=== PATIENT | female | born 1960 | race Caucasian/White ===

== ENCOUNTER 2020-07-30 14:41 | Emergency (ER) | payer OTHER, SELFPAY ==
[2020-07-30 14:48] VITALS: BP 130/72; PULSE 68; RESP 16; TEMP 36.8; O2SAT 97; BMI 28.6
--- NOTE | 2020-07-30 14:50 | DI.RAD.S_ITS ---
PROCEDURE: XR WRIST LT MIN 3V INDICATIONS: fall TECHNIQUE: 4 views of the wrist were acquired. COMPARISON: None. FINDINGS: Bones: Subtle irregularity involving lateral cortex of distal radius consistent with acute nondisplaced fracture. No other fracture or dislocation. No suspicious bony lesions. Scaphoid view: Scaphoid is intact. Soft tissues: No suspicious soft tissue calcifications. IMPRESSION: Subtle nondisplaced/incomplete fracture involving lateral portion of distal radius. Dictated by: Robert Curry M.D. on 07/30/2020 at 15:21 Approved by: Robert Curry M.D. on 07/30/2020 at 15:21
--- NOTE | 2020-07-30 15:24 | ED_ITS ---
HPI - Extremity Injury (Upper) General Chief Complaint: Extremity Injury, Upper Stated Complaint: LEFT WRIST INJURY Time Seen by Provider: 07/30/20 14:58 Source: patient Mode of arrival: Ambulatory Limitations: no limitations History of Present Illness HPI narrative: 60-year-old female nonsmoker presents with a chief complaint of left wrist injury after a work related fall just prior to arrival. She works as a gear machine operator general locally and a stack of wood was unsteady and knocked her over. As a consequence, she fell back on an outstretched left wrist and now has pain with range of motion in her left wrist. She denies any head neck or back pain. She denies any shoulder or elbow pain. Her pain is worse when she moves and improves with rest. She denies any numbness, tingling or weakness MD complaint: injury to: left Onset (ago): hour(s) Other Extremity Injury: Left: wrist Other injuries: none Handedness: right Place: work Severity: moderate Relieving factors: cold therapy Exacerbating factors: movement of extremity Context: fall and direct blow Associated symptoms: denies other symptoms Treatments prior to arrival: cold therapy Related Data Home Medications Medication Instructions Recorded Confirmed thyroid (pork) 65 mg tablet 65 mg PO DAILY 08/23/19 08/23/19 Previous Rx's Medication Instructions Recorded triamcinolone acetonide 0.1 % 1 applictn TOP BID #30 gram 08/23/19 topical cream Allergies Allergy/AdvReac Type Severity Reaction Status Date / Time No Known Drug Allergies Allergy Verified 08/23/19 15:00 Review of Systems Constitutional Constitutional: Denies chills, Denies fatigue, Denies fever(s), Denies frequent falls, Denies lethargy and Denies weakness Eyes Eyes: Denies change in vision, Denies eye discharge, Denies irritation and Denies loss of vision ENT Ears, Nose, Mouth, and Throat: Denies change in voice, Denies dizziness, Denies neck pain, Denies sore throat and Denies throat swelling Cardiovascular Cardiovascular: Denies chest pain, Denies irregular heart rhythm, Denies lightheadedness, Denies palpitations, Denies dyspnea, Denies dyspnea on exertion and Denies orthopnea Respiratory Respiratory: Denies cough, Denies dyspnea, Denies dyspnea on exertion and Denies wheezing Gastrointestinal Gastrointestinal: Denies abdominal pain, Denies change in bowel habits, Denies diarrhea, Denies nausea and Denies vomiting Musculoskeletal Musculoskeletal: Reports arthralgias, Denies neck pain and Denies numbness Integumentary/Breasts Skin/Breast: Denies pruritus, Denies erythema, Denies rash and Denies wounds Neurologic Neurologic: Denies behavioral changes, Denies confusion, Denies dizziness, Denies frequent falls, Denies loss of vision, Denies numbness and Denies weakness Psychiatric Psychiatric: Denies anxiety, Denies behavioral changes, Denies confusion, Denies depression, Denies homicidal ideation and Denies suicidal ideation Endocrine Endocrine: Denies fatigue, Denies flushing and Denies palpitations Hematologic/Lymphatic Hematologic/Lymphatic: Denies easy bruising Allergic/Immunologic Allergic/Immunologic: Denies urticaria, Denies throat swelling and Denies wheezing Patient History Social History Smoking Status: Never smoker Smoking Status: Never smoker alcohol intake frequency: 0-2 drinks per day Substance Use Type: does not use Exam Narrative Exam Narrative: GEN: AOx3 and in mild distress EYES: Pupils are equal, round, and reactive to light and accommodation. Extraoccular muscles are intact bilaterally. There is no subconjunctival hemorrhage or exudate. CHEST: Lungs are clear to auscultation bilaterally and free of wheezes, rales, or rhonchi. Heart rate is regular rhythm, there are no murmurs, clicks, rubs, or gallops. There is no chest wall tenderness. ABD: Abdomen is soft and nontender. There is no guarding or rebound. Bowel sounds are normal in all 4 quadrants. There is no mass or organomegaly. EXT: Full but painful range of motion of the left wrist, closed isolated and neurovascularly intact SKIN: Warm, pink, and dry. No erythema or rash Initial Vital Signs Initial Vital Signs: Vital Signs Temperature 98.2 F 07/30/20 14:48 Pulse Rate 68 07/30/20 14:48 Respiratory Rate 16 07/30/20 14:48 Blood Pressure 130/72 07/30/20 14:48 Pulse Oximetry 97 07/30/20 14:48 Procedures Orthopedic Splinting/Casting Injury #1: Side: left Upper Extremity Injury Location: wrist Upper Extremity Immobilizer: sling/shoulder immobilizer Post splinting neuro exam: intact Post splinting vascular exam: intact Placed by: Nursing Course Orders Ordered: ED Orders 07/30/20 14:50 XR wrist LT min 3V Stat Vital Signs Vital signs: Vital Signs - 8 hr 07/30/20 14:48 Temperature 98.2 F Pulse Rate 68 Respiratory Rate 16 Blood Pressure 130/72 Pulse Oximetry 97 Discharge Plan Departure Patient Disposition: Home Clinical Impression: Distal radius fracture, left Qualifiers: Encounter type: initial encounter Fracture type: closed Fracture morphology: other fracture Qualified Code(s): S52.592A - Other fractures of lower end of left radius, initial encounter for closed fracture Instructions: DI for Distal Radius Fracture Activity Restrictions/Additional Instructions: *You have been diagnosed with [minimally displaced left distal radius fracture] *What to do: *Please continue to take your regular medications as directed. [ ] New medication prescriptions sent to your pharmacy: [ ] [ ] New medication written as a paper prescription [ x] No new medications given *Please follow up with your primary care provider in 2-3 days, call for an appointment. Let them know you were seen in the Emergency Department and that we ask that you be seen in follow up. We will electronically transmit a record of today's note if your PCP is in our system *If you do not have a primary care provider please contact the [facility] Resource line at [phone]. They will ask some questions about your medical history and help get you set up with a doctor in the community. *Return to Emergency Department if you should have any new, worsening or concerning symptoms, such as [fever greater than 101 F, shaking chills, worsening pain, persistent vomiting or other bothersome symptoms] Prescriptions: No Action Nature-Throid 65 mg tablet 65 mg PO DAILY RF: 0 triamcinolone acetonide 0.1 % cream 1 applictn TOP BID Qty: 30 RF: 0 Referrals: Genaro Armando MD [Physician] -
[2020-07-30 16:17] VITALS: BP 140/75; PULSE 55; RESP 20; O2SAT 99
== END 2020-07-30 16:26 | disposition home or self-care (01) ==
PROVIDERS: Emergency Provider Emergency Medicine
DX: S52.592A Other fractures of lower end of left radius, initial encounter for closed fracture (principal); W19.XXXA Unspecified fall, initial encounter
CPT/HCPCS: 29125; 73110; 99283

== ENCOUNTER → 2022-04-15 14:35 | Outpatient (CLI) | payer OTHER, SELFPAY ==
--- NOTE | 2022-04-15 | DI.RAD.S_ITS ---
PROCEDURE: XR SHOULDER LT MIN 2V INDICATIONS: Pain in left shoulder TECHNIQUE: 3 views of the shoulder were acquired. COMPARISON: None. FINDINGS: Bones: No fractures or dislocations. No suspicious bony lesions. There is a large osteophyte at the inferior aspect of the left femoral head. Visualized ribs appear intact. Soft tissues: No suspicious soft tissue calcifications. IMPRESSION: Moderate to severe left glenohumeral joint degenerative change. Dictated by: Tova Polo M.D. on 04/15/2022 at 16:11 Approved by: Tova Polo M.D. on 04/15/2022 at 16:11
== END ==
PROVIDERS: PCP Family Medicine; Referring Provider Family Medicine; Visit Provider Family Medicine
DX: M25.512 Pain in left shoulder (principal)
CPT/HCPCS: 73030

== ENCOUNTER → 2022-10-13 17:01 | Outpatient (CLI) | payer OTHER, SELFPAY ==
--- NOTE | 2022-10-13 | DI.MRI.S_ITS ---
PROCEDURE: MR SHOULDER LT WO CON INDICATIONS: Pain in left shoulder TECHNIQUE: Noncontrast oblique coronal T2 fast spin echo with fat saturation, oblique sagittal T1 spin echo and T2 fast spin echo with fat saturation, axial T1 spin echo and T2 fast spin echo with fat saturation through the shoulder. COMPARISON: Shoulder radiograph dated 04/15/2022. FINDINGS: Image quality: Excellent. Rotator cuff: Low to moderate grade articular and bursal surface partial thickness tear involving distal supraspinatus at its insertion on humeral head is seen extending to musculotendinous junction. Distal infraspinatus tendinosis is seen . Low-grade intrasubstance partial-thickness tear is seen in distal subscapularis. No full-thickness rotator cuff tendon rupture. Sagittal images demonstrate very mild supraspinatus muscle atrophy. Bones and bursae: No bone marrow contusions or fractures. Mild to moderate acromioclavicular joint and glenohumeral joint osteoarthritic changes are seen with joint space narrowing, subchondral sclerosis and downward osteophyte formation. There is small amount of joint effusion and subacromial subdeltoid bursal fluid. No gross loose bodies. Capsule and soft tissues: Subtle fraying and signal abnormality within superior anterior labrum at 12 to 1 o'clock position is seen suggestive of subtle superior anterior labral tear. There is also suggestion of posterior inferior labral tear at 6 to 8 o'clock position. The long head of the biceps tendon appears thickened. The rotator interval appears normal, without fibrosis. The coracohumeral ligament is normal in thickness. IMPRESSION: 1. Low to moderate grade articular and bursal surface partial thickness tear involving distal supraspinatus extending to musculotendinous junction. Distal infraspinatus tendinosis. Low-grade intrasubstance partial-thickness tear involving distal subscapularis. No full-thickness rotator cuff tendon rupture. Very mild supraspinatus muscle atrophy. 2. [id number] acromioclavicular joint and glenohumeral joint osteoarthritis. No fracture or dislocation. Small joint effusion and subacromial subdeltoid bursal fluid. 3. Suggestion of subtle superior anterior labral tear at 12 to 1 o'clock position and posterior inferior labral tear at 6 to 8 o'clock position. 4. Proximal intra-articular portion of long head of biceps tendinosis. Dictated by: Robert Curry M.D. on 10/14/2022 at 11:02 Approved by: Robert Curry M.D. on 10/14/2022 at 11:05
== END ==
PROVIDERS: PCP Family Medicine; Referring Provider Orthopaedic Surgery; Visit Provider Orthopaedic Surgery
DX: M75.112 Incomplete rotator cuff tear or rupture of left shoulder, not specified as traumatic (principal); M19.012 Primary osteoarthritis, left shoulder; M25.412 Effusion, left shoulder; M25.512 Pain in left shoulder
CPT/HCPCS: 73221

== ENCOUNTER → 2022-10-28 11:43 | Outpatient (CLI) | payer OTHER, SELFPAY ==
[2022-10-28 12:47] LABS: Appearance Urine UA CLEAR; Bilirubin Urine UA NEGATIVE (NEGATIVE); Color Urine UA YELLOW; Glucose Urine UA NEGATIVE (Negative); Ketones Urine UA NEGATIVE (NEGATIVE); Leukocyte Esterase Urine UA NEGATIVE (NEGATIVE); Nitrite Urine UA NEGATIVE (Negative); Occult Blood Urine UA NEGATIVE (Negative); Protein Urine UA NEGATIVE (Negative); Urobilinogen Urine UA 0.2 E.U./dL (0.2)
[2022-10-28 13:18] LABS: Bacteria Urine None Seen; Culture Indicated Urine Cult Not Indicated; RBC Urine None Seen (0-5/HPF); Squamous Epithelial Cell Urine 0-1 /HPF (0-5/HPF); WBC Urine None Seen (0-5/HPF)
[2022-10-28 14:18] LABS: Add Manual Diff / Slide Review NO; Basophils Absolute Auto 0 /uL (0-100); Basophils Percent Auto 0.6 % (0-2); Eosinophils Absolute Auto 100 /uL (0-450); Eosinophils Percent Auto 1.8 % (2-4); Hematocrit 39.6 % (36-46); Hemoglobin 12.9 g/dL (12.0-16.0); Lymphocytes Absolute Auto 2600 /uL (1100-4500); Lymphocytes Percent Auto 43.2 % (25-40); Mean Corpuscular HGB Conc 32.6 % (30-36); Mean Corpuscular Hemoglobin 28.2 PG (26-34); Mean Corpuscular Volume 86.6 fL (80-100); Monocytes Absolute Auto 400 /uL (0-900); Monocytes Percent Auto 6.9 % (3-14); Neutrophils Absolute Auto 2900 /uL (1500-7000); Neutrophils Percent Auto 47.5 % (50-75); Platelet Count 222 X10^3/uL (150-400); Red Blood Cell Count 4.57 X10^6/uL (4.0-5.2); Red Cell Distribution Width 14.6 % (11.6-14.8)
[2022-10-28 14:41] LABS: BUN Creatinine Ratio 24.3 (6-22); Blood Urea Nitrogen 17 mg/dL (7-17); Calcium 10.3 mg/dL (8.4-10.2); Carbon Dioxide 26 mmol/L (22-32); Chloride 104 mmol/L (98-107); Estimated Glomerular Filt Rate > 60 mL/min (>60); Glucose 92 mg/dL (80-110); HEMOLYSIS < 15 (0-50); Potassium 4.9 mmol/L (3.4-5.1); Sodium 137 mmol/L (137-145)
== END ==
PROVIDERS: PCP Family Medicine; Referring Provider Orthopaedic Surgery; Visit Provider Orthopaedic Surgery
DX: Z01.818 Encounter for other preprocedural examination (principal); Z01.812 Encounter for preprocedural laboratory examination; N39.0 Urinary tract infection, site not specified
CPT/HCPCS: 36415; 80048; 81001; 85025; 93005; 93010

== ENCOUNTER → 2022-11-13 13:47 | Outpatient (CLI) | payer OTHER, SELFPAY ==
--- NOTE | 2022-11-13 | DI.CT.S_ITS ---
PROCEDURE: CT UE LT WO CON INDICATIONS: Primary osteoarthritis, left shoulder TECHNIQUE: Noncontrast 1-1.5 mm thick sections acquired from the acromioclavicular joint to the inferior scapula, with coronal and sagittal reformatting. COMPARISON: None. FINDINGS: Image quality: Excellent. Bones: Glenohumeral joint space narrowing. Osteophytic lipping of the glenoid, with bulky osteophytosis about the humerus. Mild osteophytic lipping about the acromioclavicular joint, with a prominent capsule. No displaced fracture. Subacromial interval is within normal limits. No evidence of AC joint separation. Soft tissues: Muscle bulk is within normal limits. No significant effusion. Visualized along and mediastinum are unremarkable. IMPRESSION: Moderate glenohumeral osteoarthritis. Kellgren-Jori Grade 2. Mild acromioclavicular osteoarthritis. Dictated by: Johnny Blanco M.D. on 11/14/2022 at 7:34 Approved by: Johnny Blanco M.D. on 11/14/2022 at 7:36
== END ==
PROVIDERS: PCP Family Medicine; Referring Provider Orthopaedic Surgery; Visit Provider Orthopaedic Surgery
DX: M19.012 Primary osteoarthritis, left shoulder (principal)
CPT/HCPCS: 73200

== ENCOUNTER 2022-12-01 09:02 | Day surgery (SDC) | payer OTHER, SELFPAY ==
[2022-11-26 08:56] VITALS: BMI 28.3
--- NOTE | 2022-12-01 06:00 | DI.RAD.S_ITS ---
PROCEDURE: XR SHOULDER LT 1V INDICATIONS: TSA TECHNIQUE: 1 views of the shoulder were acquired. COMPARISON: [facility], CR, XR SHOULDER LT MIN 2V, 04/15/2022, 14:37. FINDINGS: Postsurgical left arthroplasty changes. There is good anatomic alignment and hardware is intact. Post surgical soft tissue changes are present.. IMPRESSION: Left arthroplasty postsurgical change. Dictated by: Ludy Hernandez M.D. on 12/01/2022 at 14:03 Approved by: Ludy Hernandez M.D. on 12/01/2022 at 14:03
[2022-12-01 09:23] VITALS: BP 109/75; PULSE 73; RESP 17; TEMP 36.8; O2SAT 98; BMI 28.3
[2022-12-01] MEDS: ACETAMINOPHEN 325 MG TABLET 975 MG PO (10:07)
[2022-12-01] MEDS: SCOPOLAMINE 1 PATCH TOP (10:09)
[2022-12-01] MEDS: LACTATED RINGERS 1,000 ML 42 ML IV ×2 (10:12→12:37)
--- NOTE | 2022-12-01 10:39 | PM.PREOP ---
Pre-operative Note Interval Note History & Physical reviewed/Exam performed by Physician: Yes Changes to H&P: No
[2022-12-01] MEDS: TRANEXAMIC ACID 1,000 MG VIAL 1000 MG INJ ×2 (11:26→12:23)
[2022-12-01] MEDS: CEFAZOLIN 2 GM/100 ML PREMIX 100 ML IV (11:26)
--- NOTE | 2022-12-01 11:53 | SUR.OPER ---
Beach chair with Skytron shoulder positioner. Lower body on padded OR bed. Head in foam padded head cradle, secured with straps. Non-operative arm padded with gel pad and secured <90 degrees abduction at patients side. 2X Pillows under knees. Gel pad under bilateral heels and heels floated. Safety belt at thigh. Cloth tape over blanket over lower legs.
[2022-12-01] MEDS: BUPIVACAINE 0.25% (PF) 30 ML, EPINEPHrine 0.15 MG INJ (12:20)
--- NOTE | 2022-12-01 13:11 | P.OP_ITS ---
Operative Date/Time/Diagnoses Date of procedure: 12/01/22 Time of procedure: 13:11 Pre-op diagnosis: left shoulder glenohumeral arthritis Post-op diagnosis: same Procedure & Clinicians Procedure: Left anatomic total shoulder arthroplasty Same procedure as scheduled: Yes Indications: Indications: This is a 62-year-old female who has primary osteoarthritis of the left glenohumeral joint. Symptoms have been present for years, insidious onset. Patient has failed conservative therapy including injections, physical therapy, anti-inflammatories and activity modification. After extensive discussion in clinic, they wished to go forward with surgery. Risks and benefits were described including the risk of infection, bleeding, damage to internal structures including nerves. We also discussed the risk of failure of surgery and the need for revision surgery as well as the risk of anesthesia. The patient expressed understanding with these risks and wished to go forward with surgery. Surgeon: Marky Jim Sleeping Car Conductor: Ramsey Garcia Anesthesia Type: General Operative Notes Findings: Findings: Osteoarthritis of the glenoid and humeral head as noted on preoperative imaging and under direct visualization Closure Type: primary Specimen(s): none sent Prosthetic devices, grafts, tissues, transplants, or devices: [employer]plants CortiLoc Pegged Glenoid UHMWPE S30 Simpliciti Nucleus Size 2 Simpliciti CoCr head size 46 x 17 Estimated Blood Loss (mL): 50 Blood products transfused: none Procedure in detail: Operative note: Patient was seen in the preoperative holding unit. The correct left shoulder was identified and marked with my initials. Again we discussed the risks and benefits of surgery and they wished to go forward with surgery. The patient was brought back to the operating room and placed supine on the operating table. She underwent smooth endotracheal intubation. All prominences were padded and they were placed into the beach chair position. Intravenous antibiotics were given. The left shoulder was then prepped with the standard sterile preparation and draping. A time-out was then performed in my initials were again identified on the correct shoulder. 1 g of IV tranexamic acid was given. A standard deltopectoral incision was made. Skin flaps were made. The cephalic vein was identified and retracted laterally. This was protected throughout the remainder of the case. Sharp dissection was made along the deltoid, subacromial and subcoracoid space to release adhesions. The conjoined tendon was identified and the axillary nerve was palpated and continuous using the tug test. It was protected throughout the remainder of the case. A brown retractor was placed underneath the deltoid muscle and a darach retractor underneath the conjoint tendon. The anterior circumflex artery and associated veins on the lower border of the subscapularis were identified and tied off using 0-Vicryl. The biceps tendon was identified in the bicipital groove. This was released from its sheath, and taken from its origin on the glenoid and tied into the pectoralis tendon for a solid tenodesis. We then began a subscapularis peel. The subscapularis was tagged with an Ethibond suture. A 360 degree circumferential release of the subscapularis was performed with protection of the axillary nerve. The coracohumeral ligament was released at the base of the coracoid. The coracoacromial ligament was left intact. The shoulder was then dislocated. Osteophytes were removed using combination of rongeur and osteotome. The rotator cuff was noted to be intact. Using an oscillating saw a conservative humeral head cut was made using the patient's [place] version. The head was measured and a guide for size 2 simpliciti humeral head was used to drill a central hole followed by impaction. Attention was then turned to the glenoid. After retracting the humeral head posteriorly, release of the capsule and labrum was performed. Central guidewire was placed. The glenoid was then reamed followed by a central drill over the guidewire. Guidewire was removed and using a guide, peripheral holes were drilled. At this point dilute Betadine wash was performed for 2 minutes. Medium viscosity cement was mixed and the drill holes were completely dried. An all polyethylene pegged glenoid was then selected, and cemented into the glenoid. Turning back to the humerus, the humeral head was delivered and 3 seperate [place] were passed through drill holes through the lesser tuberosity into the bicipital groove. The nucleus was then impacted into the humerus and a size 46 stemless humeral head was placed. The shoulder was then reduced and again brought through range of motion and was felt to be stable. The interval was then closed using #2 ethibond. The subscapularis was then repaired using a modified racking hitch with niece loupes. The deltopectoral interval was then closed with #2 Ethibond. The skin was closed with 2-0 PDS and Monocryl followed by Aquacel dressing. Patient was awoken from anesthesia and brought back to the postoperative recovery unit without issue. They were placed into a sling. Assisting participation: This operation could not have been safely performed (without compromising the technical results or length of the procedure) without the assistance of a skilled surgical asst. The surgical asst was med ically necessary for proper positioning, retraction and manipulation of instruments, proper exposure, graft prep, and manipulation of tissue. Complications: none Post-operative Condition: stable Disposition: PACU Plan for aftercare: Postoperative instructions: Sling to remain on for 6 weeks. No external rotation past neutral for 6 weeks. Okay for sling to come off for shower and gentle pendulum exercises. Okay to shower over the Aquacel dressing. If any water gets underneath the dressing, remove the dressing. First postoperative visit in 2 weeks.
[2022-12-01 13:26] VITALS: BP 109/56; PULSE 89; RESP 12; TEMP 36.2; O2SAT 95
[2022-12-01 13:31] VITALS: BP 102/64; PULSE 92; RESP 11; TEMP 36.3; O2SAT 94
[2022-12-01 13:38] VITALS: BP 105/62; PULSE 80; RESP 14; TEMP 36.2; O2SAT 95
[2022-12-01] MEDS: METOCLOPRAMIDE 10 MG/2 ML INJ IV (13:47)
[2022-12-01] MEDS: hydrOXYzine 50 MG/ML INJ 25 MG IM (13:50)
[2022-12-01 13:54] VITALS: BP 98/52; PULSE 79; RESP 12; TEMP 36.2; O2SAT 95
[2022-12-01] MEDS: ONDANSETRON 4 MG/2 ML INJ IV (14:04)
[2022-12-01] MEDS: OXYCODONE IR 5 MG TABLET PO (14:28)
[2022-12-01 14:55] VITALS: BP 100/64; PULSE 69; RESP 16; O2SAT 94
== END 2022-12-01 15:03 | disposition home or self-care (01) ==
PROVIDERS: PCP Family Medicine; Referring Provider Physician Assistant; Visit Provider Orthopaedic Surgery
PROC: (CPT 23472; principal; 2022-12-01 10:45)
DX: M19.012 Primary osteoarthritis, left shoulder (principal); M25.712 Osteophyte, left shoulder; G89.18 Other acute postprocedural pain
CPT/HCPCS: 23472; 36415; 64450; 73020; C1776; J0171; J0330; J0690; J1100; J2405; J2704; J2765; J3010; J3410

== ENCOUNTER → 2023-01-19 13:41 | Outpatient (CLI) | payer OTHER, SELFPAY ==
--- NOTE | 2023-01-19 | DI.MRI.S_ITS ---
PROCEDURE: MR ORBITS FACE NECK WO/W CON INDICATIONS: Nontoxic multinodular goiter TECHNIQUE: Sagittal/axial/coronal T1 spin echo and STIR. After the administration of contrast, axial/coronal/sagittal T1 fast spin echo with fat saturation through the neck. COMPARISON: None. FINDINGS: Image quality: Excellent. Lymph nodes: No enlarged nodes are seen throughout the neck. Vessels: Visualized vasculature appears normal, with normal flow voids and enhancement. Neck spaces: The oropharynx, nasopharynx and pharynx are unremarkable, without mucosal lesions seen. Vocal cords, false vocal cords, pyriform sinuses, epiglottis, vallecula, and tongue base all appear normal. Extramucosal spaces of the neck also appear unremarkable. Glands: The parotid and submandibular glands appear normal. Left superior thyroid nodule is present, better evaluated on prior ultrasound. No evidence of parathyroid lesions.. Miscellaneous: Visualized brain and orbits appear normal. Lung apices appear clear. Superficial soft tissues appear normal. Visualized sinuses and mastoids appear clear. Bones: Marrow has normal overall signal. Degenerative changes of the cervical spine. IMPRESSION: Left superior thyroid nodules better evaluated on prior ultrasound. No parathyroid lesions are identified. No lymphadenopathy. Dictated by: Leroy Palma M.D. on 01/28/2023 at 15:36 Approved by: Leroy Palma M.D. on 01/28/2023 at 15:45
== END ==
PROVIDERS: PCP Family Medicine; Referring Provider Family Medicine; Visit Provider Family Medicine
DX: E04.2 Nontoxic multinodular goiter (principal); E21.5 Disorder of parathyroid gland, unspecified
CPT/HCPCS: 70540; 70543; A9579

== ENCOUNTER → 2023-03-31 16:14 | Outpatient (CLI) | payer MEDICARE, SELFPAY ==
--- NOTE | 2023-03-31 16:17 | DI.MG.S_ITS ---
BILATERAL DIGITAL SCREENING MAMMOGRAM 3D/2D WITH CAD: 03/31/2023 CLINICAL: Routine screening. Family history of breast cancer. Comparison is made to exams dated: 07/16/2021 mammogram, 06/16/2020 mammogram - [facility], and 05/03/2018 mammogram - [facility]. Both breasts are heterogeneously dense, which may obscure small masses (category c / 51-75% glandular tissue). Current study was also evaluated with a Computer Aided Detection (CAD) system. No significant masses, calcifications, or other findings are seen in either breast. There has been no significant interval change. IMPRESSION: NEGATIVE There is no mammographic evidence of malignancy. A 1 year screening mammogram is recommended. Based on the Tyrer Cuzick model (a risk assessment model) the patient's lifetime risk is 19.9% and her 10 year risk is 9.6%. According to the ACR, ACS, and NCCN guidelines, an annual breast MRI exam along with mammogram is recommended if the patient's lifetime risk is 20% or greater. This exam was interpreted at Station ID: [id number]. NOTE: For mammograms, a report in lay terms will be sent to the patient. Approximately 15% of breast malignancies will not be visualized mammographically. In the management of a palpable breast mass, a negative mammogram must not discourage biopsy of a clinically suspicious lesion. Electronically Signed By: Lamonte augustin/claudia:04/01/2023 14:55:33 letter sent: Normal Exam ACR BI-RADS Category 1: Negative [id number]
== END ==
PROVIDERS: PCP Family Medicine; Referring Provider Family Medicine; Visit Provider Family Medicine
DX: Z12.31 Encounter for screening mammogram for malignant neoplasm of breast (principal); Z80.3 Family history of malignant neoplasm of breast; R92.333 Mammographic heterogeneous density, bilateral breasts
CPT/HCPCS: 77063; 77067

== ENCOUNTER → 2023-10-27 15:35 | Outpatient (CLI) | payer MEDICARE, SELFPAY ==
--- NOTE | 2023-10-27 15:45 | DI.CT.S_ITS ---
PROCEDURE: CT MASTOID TEMPORAL INDICATIONS: EUSTACHIA TUBE DYSFUNCTION COMPARISON: None. TECHNIQUE: Noncontrast 0.6 mm thick axial sections acquired through each temporal bone separately. Coronal images are reformatted. FINDINGS: Image quality: Excellent. RIGHT: External auditory canal: Canal has a normal appearance. Middle ear: The middle ear structures, including the ossicles and tympanic membrane, appear normal. No abnormal fluid or soft tissue density. Inner ear: Inner ear is normally formed and appears unremarkable. Facial nerve appears normal throughout is course. Mastoids: Mastoid air cells are clear. LEFT: External auditory canal: Canal has a normal appearance. Middle ear: The middle ear structures, including the ossicles and tympanic membrane, appear normal. No abnormal fluid or soft tissue density. Inner ear: Inner ear is normally formed and appears unremarkable. Facial nerve appears normal throughout its course. Mastoids: Mastoid air cells are clear. MISCELLANEOUS: Visualized surrounding bones appear unremarkable. Visualized intracranial structures, including the cerebellopontine angle cisterns, appear normal. IMPRESSION: Unremarkable exam. Dictated by: Ludy Hernandez M.D. on 10/28/2023 at 11:39 Approved by: Ludy Hernandez M.D. on 10/28/2023 at 11:40
== END ==
PROVIDERS: PCP Family Medicine; Referring Provider Otolaryngology; Visit Provider Otolaryngology
DX: H69.90 Unspecified Eustachian tube disorder, unspecified ear; H61 Other disorders of external ear
CPT/HCPCS: 70480

== ENCOUNTER → 2024-04-20 16:31 | Outpatient (CLI) | payer MEDICARE, SELFPAY ==
--- NOTE | 2024-04-20 17:10 | DI.MRI.S_ITS ---
PROCEDURE: MR KNEE RT WO CON INDICATIONS: KNEE INJURY RT TECHNIQUE: Noncontrast sagittal PD fast spin echo and T2 fast spin echo with fat saturation, sagittal 3-D FLASH with fat saturation; coronal T1 spin echo and PD fast spin echo with fat saturation, and axial PD fast spin echo with fat saturation through the knee. COMPARISON: None. FINDINGS: Image quality: Excellent. Bones: Mild subchondral cyst formation is present at the anterior-lateral femoral condyle (/13), median patellar facet (9/7), and lateral patellar facet (9/7). The bone marrow signal is otherwise normal. There is no acute fracture or dislocation. Joints: There is a trace knee joint effusion. There is mild-moderate knee osteoarthritis, most conspicuous in the lateral and patellofemoral compartments. There is a 1.5 cm intra-articular body in the posterior joint capsule that lies posterior-lateral to the posterior cruciate ligament (; 01/06). Finley's cyst: None. Menisci: The medial meniscus and its posterior root attachment are normal. There is a complex tear of the posterior horn and posterior root of the lateral meniscus with radial and horizontal components (11/07-; -). There is no significant meniscal body extrusion. Cruciate ligaments: The anterior cruciate ligament is normal. There is intermediate signal and partial tearing of the posterior cruciate ligament as it approaches the femoral insertion (-). Collateral ligaments: The medial collateral ligament complex is normal. The lateral collateral ligament complex is normal. Popliteus Muscle/Tendon: The popliteus muscle and tendon are normal. Small ganglion cysts are present along the popliteus myotendinous junction adjacent to the proximal tibiofibular joint (11/09-). Extensor mechanism: There is mild intermediate signal and thickening of the quadriceps tendon. The patellar tendon is normal. The medial and lateral patellar retinacular attachments are normal. Articular cartilage: Areas of partial thickness and near full-thickness cartilage loss present at the posterior weight-bearing and nonweightbearing lateral compartment (/12). Partial-thickness chondral loss is present throughout the patellofemoral compartment (/). Other: No other acute findings. IMPRESSION: 1. Complex tear of the lateral meniscus posterior horn and posterior root without full-thickness avulsion. 2. Partial-thickness tearing of the posterior cruciate ligament along its femoral insertion. 3. Mild quadriceps tendinosis. 4. Mild-moderate knee osteoarthritis with a 1.5 cm posterior joint capsule intra-articular body, and associated articular cartilage defects. Dictated by: Wesly Page M.D. on 04/23/2024 at 11:03 Approved by: Wesly Page M.D. on 04/23/2024 at 11:22
== END ==
PROVIDERS: PCP Family Medicine; Referring Provider Family Medicine; Visit Provider Family Medicine
DX: S83.231A Complex tear of medial meniscus, current injury, right knee, initial encounter (principal); S83.521A Sprain of posterior cruciate ligament of right knee, initial encounter; M17.11 Unilateral primary osteoarthritis, right knee
CPT/HCPCS: 73721

== ENCOUNTER → 2024-06-05 11:20 | Outpatient (CLI) | payer MEDICARE, SELFPAY ==
--- NOTE | 2024-06-05 11:22 | DI.RAD.S_ITS ---
PROCEDURE: XR DEXA AXIAL SKELETON INDICATIONS: Post menopause COMPARISON: None. FINDINGS: Lumbar Spine: Bone mineral density 1.037 g/cm2, T score 0.2. Left Femoral Neck: Bone mineral density 0.686 g/cm2, T score -1.5. Left Hip: Bone mineral density 0.807 g/cm2, T score -1.1. Fracture Risk Calculation (when applicable): 10-year fracture risk of a major osteoporotic fracture 8.8 percent and of a hip fracture 0.9 percent. (T score greater or equal to -1.0 to: NORMAL) (T score from -1.1 to -2.4: OSTEOPENIA) (T score less than or equal to -2.5: OSTEOPOROSIS) IMPRESSION: Low bone mineral density (osteopenia) by WHO classification. Follow-up guidelines as follows: Osteoporosis: Consider a repeat DEXA and Vertebral Fracture Assessment (VFA) exam in 2 years or sooner if medically necessary, to reassess this patient's status. Osteopenia: Consider a repeat DEXA in 2-3 years to reassess this patient's status, or if there is a new clinical indication. Normal: Consider a repeat DEXA in 5 years or sooner, or if there is a new clinical indication. All treatment decisions require clinical judgment and consideration of individual patient factors, including patient preferences, comorbidities, previous drug use, risk factors not captured in the FRAX model (e.g., frailty, falls, vitamin D deficiency, increased bone turnover, interval significant decline in bone density ) and possible under- or over-estimation of fracture risk by FRAX. In addition, the NOF Guide recommends that FDA-approved medical therapies be considered in postmenopausal women and men age >= 50 years with a: * Hip or vertebral (clinical or morphometric) fracture * T-score of <=-2.5 at the spine or hip * Ten-year fracture probability by FRAX of >= 3% for hip fracture or >=20% for major osteoporotic fracture. Dictated by: Leroy Palma M.D. on 06/05/2024 at 18:41 Approved by: Leroy Palma M.D. on 06/05/2024 at 18:42
--- NOTE | 2024-06-05 11:22 | DI.US.S_ITS ---
PROCEDURE: US THYROID INDICATIONS: Thyroid nodule TECHNIQUE: Real-time scanning was performed of the thyroid gland, with image documentation. COMPARISON: [facility], US, US THYROID, 12/22/2022, 15:54. FINDINGS: Thyroid: Right lobe measures 4.5 x 1.0 x 1.0 cm. Left lobe measures 4.4 x 1.2 x 1.1 cm. Isthmus is 0.3 cm thick. Echotexture is homogeneous. Nodule number: 1 Location: Left superior Size: 1.5 x 0.9 x 1.0 cm, previously 1.2 x 0.8 x 0.7 cm. Composition: Solid Echogenicity: Hypoechoic Shape: wider than tall. Margins: Vera Echogenic foci: None Total points: 4 ACR TI-RADS category: Moderately suspicious. Nodule adjacent to the right thyroid lobe measuring 6 x 5 x 4 mm. IMPRESSION: There has been increased size of a left thyroid lobe nodule versus development of a new nodule given differences in appearance. This nodule qualifies for fine-needle aspiration. Nodule adjacent to the right thyroid lobe measuring 6 mm, may represent a parathyroid adenoma. Recommend laboratory correlation. ACR TI-RADS definitions and recommendations: TI-RADS 1 (benign): 0 points. FNA not needed. TI-RADS 2 (not suspicious): 2 points. FNA not needed. TI-RADS 3: 3 points. * FNA if 2.5 cm or larger, follow up if 1.5 cm or larger (at 1, 3, and 5 years). TI-RADS 4: 4-6 points. * FNA if 1.5 cm or larger, follow up if 1 cm or larger (at 1, 2, 3, and 5 years). TI-RADS 5: 7 points or more. * FNA if 1 cm or larger, follow up if 0.5 cm or larger (every year for 5 years). Dictated by: Leroy Palma M.D. on 06/05/2024 at 15:37 Approved by: Leroy Palma M.D. on 06/05/2024 at 15:42
--- NOTE | 2024-06-05 11:22 | DI.MG.S_ITS ---
MM screening mammo BI: 06/05/2024. BI-RADS: 1 CLINICAL: 64-year old female for bilateral screening mammogram. Tyrer-Cuzick lifetime risk of 6.2%. PRIOR EXAMS 03/31/2023, 07/16/2021, 06/16/2020. MAMMOGRAPHY TECHNIQUE: 2D and 3D (tomosynthesis) digital mammographic views obtained, with additional images as needed for full coverage. Current study was also evaluated with a Computer Aided Detection (CAD) system. DENSITY C. The breasts are heterogeneously dense, which may obscure small masses. MAMMOGRAPHY FINDINGS Bilateral: No suspicious mass, asymmetry, microcalcification, or other abnormality seen. No significant change from comparison. IMPRESSION: * No evidence of malignancy. RECOMMENDATIONS Bilateral * Annual screening mammography. OVERALL ASSESSMENT CATEGORY BI-RADS-1: Negative. The [employer] recommends annual screening mammography beginning at age 40 for women with average risk of breast cancer. ELECTRONICALLY SIGNED: Char Flores M.D. on 06/05/2024 at 12:44:22 PM PT Interpreting Station ID: [id number]
== END ==
PROVIDERS: PCP Family Medicine; Referring Provider Family Medicine; Visit Provider Family Medicine
DX: E04.1 Nontoxic single thyroid nodule (principal); Z12.31 Encounter for screening mammogram for malignant neoplasm of breast; R92.333 Mammographic heterogeneous density, bilateral breasts; M85.852 Other specified disorders of bone density and structure, left thigh; Z78.0 Asymptomatic menopausal state
CPT/HCPCS: 76536; 77063; 77067; 77080

== ENCOUNTER → 2024-07-04 08:39 | Outpatient (CLI) | payer MEDICARE, SELFPAY ==
[2024-07-04 09:45] LABS: Add Manual Diff / Slide Review NO; Basophils Absolute Auto 0 /uL (0-100); Basophils Percent Auto 0.5 % (0-2); Eosinophils Absolute Auto 100 /uL (0-450); Eosinophils Percent Auto 1.8 % (2-4); Hematocrit 40.9 % (36-46); Hemoglobin 13.4 g/dL (12.0-16.0); Lymphocytes Absolute Auto 2000 /uL (1100-4500); Lymphocytes Percent Auto 36.2 % (25-40); Mean Corpuscular HGB Conc 32.7 % (30-36); Mean Corpuscular Hemoglobin 28.5 PG (26-34); Monocytes Absolute Auto 500 /uL (0-900); Monocytes Percent Auto 9.4 % (3-14); Neutrophils Absolute Auto 2900 /uL (1500-7000); Neutrophils Percent Auto 52.1 % (50-75); Platelet Count 287 X10^3/uL (150-400); Red Cell Distribution Width 14.1 % (11.6-14.8); White Blood Cell Count 5.6 X10^3/uL (4.5-11.0)
[2024-07-04 10:09] LABS: Alanine Aminotransferase 26 IU/L (<35); Albumin 4.8 g/dL (3.5-5.0); Albumin Globulin Ratio 2.2 (1.0-2.8); Alkaline Phosphatase 73 U/L (38-126); Aspartate Aminotransferase 31 IU/L (14-36); Bilirubin Total 0.8 mg/dL (0.2-1.3); Blood Urea Nitrogen 21 mg/dL (7-17); Calcium 10.6 mg/dL (8.4-10.2); Carbon Dioxide 25 mmol/L (22-32); Chloride 105 mmol/L (98-107); Cholesterol 248 mg/dL (140-199); Estimated Glomerular Filt Rate > 60 mL/min (>60); Globulin 2.2 g/dL (1.7-4.1); Glucose 101 mg/dL (70-99); HDL Cholesterol 68 mg/dL (40-60); HEMOLYSIS < 15 (0-50); LDL Cholesterol Calculated 161 mg/dL (<100); Potassium 5.2 mmol/L (3.4-5.1); Sodium 137 mmol/L (137-145); Triglycerides 95 mg/dL (35-150)
[2024-07-04 10:29] LABS: Vitamin D 25 Hydroxy (D3) 57.4 ng/mL (30.0-100.0)
[2024-07-04 10:31] LABS: T4 Total Thyroxine 8.29 ug/dL (5.5-11.0)
[2024-07-06 08:36] LABS: Calcium 10.3 mg/dL (8.7-10.3); Parathyroid Hormone, Intact 41 pg/mL (15-65)
== END ==
LOC: LAB 08:42
PROVIDERS: PCP Family Medicine; Referring Provider Family Medicine; Visit Provider Family Medicine
DX: E03.9 Hypothyroidism, unspecified (principal); E04.1 Nontoxic single thyroid nodule; E21.5 Disorder of parathyroid gland, unspecified; Z13.6 Encounter for screening for cardiovascular disorders
CPT/HCPCS: 36415; 80053; 80061; 82306; 82310; 83970; 84436; 84443; 84481; 85025

== ENCOUNTER → 2024-07-04 12:59 | Outpatient (CLI) | payer MEDICARE, SELFPAY ==
--- NOTE | 2024-07-04 13:01 | DI.US.S_ITS ---
PROCEDURE: US THYROID INDICATIONS: LEFT thyroid NODULE TECHNIQUE: Real-time scanning was performed of the thyroid gland, with image documentation. 3 images COMPARISON: [facility], US, US THYROID, 06/05/2024, 11:44. FINDINGS: Thyroid: Nodule number: 1 Location: Left thyroid lobe superiorly Size: 0.9 x 0.6 x 0.4 cm (previously measured approximately 1.5 x 1.0 x 0.9 cm). Initially the patient was scheduled for an ultrasound-guided fine-needle aspiration of the left thyroid lobe nodule. Prior to the procedure in discussion with the patient since the lesion was smaller than the prior exam and stable over the past several exams the patient decided to forego fine-needle aspiration at this time and to follow the lesion by ultrasound IMPRESSION: Left thyroid lobe nodule as discussed above. Follow-up ultrasound in 1 year. Dictated by: Peter Lopez M.D. on 07/04/2024 at 15:36 Approved by: Peter Lopez M.D. on 07/04/2024 at 15:40
== END ==
PROVIDERS: PCP Family Medicine; Referring Provider Family Medicine; Visit Provider Family Medicine
DX: E03.8 Other specified hypothyroidism (principal); E04.1 Nontoxic single thyroid nodule; E03.9 Hypothyroidism, unspecified; E21.5 Disorder of parathyroid gland, unspecified; Z13.6 Encounter for screening for cardiovascular disorders
CPT/HCPCS: 36415; 76536; 80053; 80061; 82306; 82310; 83970; 84436; 84443; 84481; 85025

== ENCOUNTER → 2024-07-27 09:01 | Outpatient (CLI) | payer MEDICARE, SELFPAY ==
--- NOTE | 2024-07-27 09:03 | DI.ECHO.S_ITS ---
[place] [facility]+ [facility] : : [address] : : [place] : : [id number] : : Phone: [phone] Echocardiogram Report + + :Name: ANDREINA POP Study Date: 07/27/2024 Height: 68 in : :[facility] ReadingLocation: Weight: 184 lb : : Gender: Female BSA: 2.0 m2 : :: 1960 Age: 64 yrs BP: 111/75 mmHg: :Reason For Study: PALPITATIONS : :Ordering Physician: NATHALIA, : :TUAN Rucker Performed By: John Beach : :Referring: TUAN SLOAN : + + Interpretation Summary The ejection fraction is estimated to be 60-65%. Grade I diastolic dysfunction. The right ventricle is normal in size and function. The right ventricular systolic pressure is estimated to be at least 24 mmHg based on an estimated right atrial pressure of 3 mm Hg. No significant valvular abnormalities. Procedure: A two-dimensional transthoracic echocardiogram with color flow and Doppler was performed. The study quality was technically good. There is no prior echocardiogram noted for this patient. The patient was in normal sinus rhythm during the exam. Left Ventricle: The left ventricle is normal in size. There is normal left ventricular wall thickness. There is no ventricular septal defect visualized. The ejection fraction is estimated to be 60-65%. There are no focal wall motion abnormalities. Grade I diastolic dysfunction. Right Ventricle: The right ventricle is normal in size and function. Atria: The left atrium is mildly dilated. Right atrial size is normal. There is no Doppler evidence for an interatrial shunt. Mitral Valve: The mitral valve leaflets appear normal. There is no evidence of stenosis, fluttering, or prolapse. There is trace mitral regurgitation. Aortic Valve: The aortic valve is trileaflet. The aortic valve is slightly calcified. The aortic valve opens well. There is no hemodynamically significant valvular aortic stenosis. No aortic regurgitation is present. Tricuspid Valve: The tricuspid valve leaflets are thin and pliable. There is mild tricuspid regurgitation. The right ventricular systolic pressure is estimated to be at least 24 mmHg based on an estimated right atrial pressure of 3 mm Hg. Pulmonic Valve: The pulmonic valve is not well seen, but is grossly normal. There is trace pulmonic regurgitation. Great Vessels: The aortic root is normal size. The dimensions of the ascending aorta are normal. The pulmonary artery is normal size. The IVC is of normal diameter and collapses greater than 50% with a sniff. This suggests a low right atrial pressure of 3 mm Hg. Pericardium/ Pleura There is no pericardial effusion. There is no pleural effusion. MMode/2D Measurements & Calculations LVIDd: 4.3 cm LVOT diam: 2.0 cm LVIDs: 2.7 cm Ao root diam: 3.1 cm FS: 37.3 % asc Aorta Diam: 2.9 cm EPSS: 0.70 cm IVSd: 0.84 cm LVPWd: 0.76 cm LV johnson. diameter/BSA (cm/m^2): 2.2 LV sys. diameter/BSA (cm/m^2): 1.4 LA A2 area: 19.6 cm2 RA long axis: 5.0 cm LA A4 area: 21.7 cm2 RA area: 14.0 cm2 LA length (vol): 4.9 cm RA vol: 33.2 ml LA vol: 73.0 ml RA : 16.8 ml/m2 LA vol index: 37.0 ml/m2 IVC diam: 1.1 cm RVD1 (basal): 3.6 cm RVD2 (mid): 3.1 cm TAPSE: 2.8 cm Doppler Measurements & Calculations Ao V2 max: 129.0 cm/sec LVOT Max Freddie: 100.3 cm/sec Ao V2 mean: 91.1 cm/sec LV V1 max P.0 mmHg Ao max P.7 mmHg LV V1 VTI: 21.7 cm Ao mean P.7 mmHg RICKY(I,D): 2.4 cm2 Ao V2 VTI: 28.4 cm RICKY(V,D): 2.4 cm2 sev ratio: 0.76 RICKY indexed to BSA (cm^2/m^2): 1.2 MV E max freddie: 66.4 cm/sec TR max freddie: 230.5 cm/sec MV A max freddie: 65.8 cm/sec TR max P.3 mmHg MV E/A: 1.0 PA V2 max: 87.6 cm/sec Med Peak E' Freddie: 5.7 cm/sec PA V2 mean: 67.1 cm/sec E/E' med: 11.6 PA mean P.9 mmHg Lat Peak E' Freddie: 5.9 cm/sec PA pr(Accel): 32.8 mmHg E/E' lat: 11.2 E/e' average: 11.4 MV dec time: 0.20 sec [facility] 68.2 ml Reading Physician:11:08 AM
== END ==
PROVIDERS: PCP Family Medicine; Referring Provider Family Medicine; Visit Provider Family Medicine
DX: I07.1 Rheumatic tricuspid insufficiency (principal); R00.2 Palpitations
CPT/HCPCS: 93306

== ENCOUNTER → 2024-08-22 09:24 | Outpatient (CLI) | payer MEDICARE, SELFPAY | LOC: CAR 09:25 | PROVIDERS: PCP Family Medicine; Referring Provider Family Medicine; Visit Provider Family Medicine | DX: R00.2 Palpitations (principal) | CPT/HCPCS: 93246 ==

== ENCOUNTER → 2024-10-31 09:28 | Outpatient (CLI) | payer MEDICARE, SELFPAY ==
[2024-10-31 11:26] LABS: Albumin 4.5 g/dL (3.5-5.0); Blood Urea Nitrogen 21 mg/dL (7-17); Calcium 10.6 mg/dL (8.4-10.2); Carbon Dioxide 23 mmol/L (22-32); Chloride 104 mmol/L (98-107); Estimated Glomerular Filt Rate > 60 mL/min (>60); Glucose 82 mg/dL (70-99); HEMOLYSIS < 15 (0-50); Potassium 4.7 mmol/L (3.4-5.1); Sodium 137 mmol/L (137-145)
[2024-10-31 12:00] LABS: Free T3, Triiodothyronine Free 5.04 pg/mL (2.77-5.27); Free T4, Direct Thyroxine 0.84 ng/dL (0.78-2.19)
[2024-10-31 12:14] LABS: Thyroid Stimulating Hormone 1.11 uIU/mL (0.47-4.68)
== END ==
PROVIDERS: PCP Family Medicine; Referring Provider Student in an Organized Health Care Education/Training Program; Visit Provider Student in an Organized Health Care Education/Training Program
DX: E03.9 Hypothyroidism, unspecified (principal)
CPT/HCPCS: 36415; 80048; 82040; 83970; 84439; 84443; 84481

== ENCOUNTER → 2024-11-01 16:17 | Outpatient (CLI) | payer MEDICARE, SELFPAY ==
--- NOTE | 2024-11-01 16:19 | DI.ECHO.S_ITS ---
[place] +---------+ [facility] : : [address] : : [place] : : [id number] : : Phone: [phone] Echocardiogram Report + + :Name: ANDREINA POP Study Date: 11/01/2024 Height: 67 in : :[facility] ReadingLocation: Weight: 179 lb : : Gender: Female BSA: 1.9 m2 : :: 1960 Age: 64 yrs BP: 113/75 mmHg: :Reason For Study: Palpitations : :Ordering Physician: ANITA, : :MILAGROS Performed By: Tulio Díaz : :Referring: MILAGROS HOWARD : + + Interpretation Summary The left ventricle is normal in size and wall thickness. Left ventricular systolic function is normal. The ejection fraction is estimated to be 60-65%. There has been no significant change in LV EF since the previous exam. The right ventricle is normal in size and function. There is mild mitral regurgitation. The IVC is of normal diameter and collapses greater than 50% with a sniff. This suggests a low right atrial pressure of 3 mm Hg. Procedure: A two-dimensional transthoracic echocardiogram with color flow and Doppler was performed. The study quality was technically adequate. Comparison is made with the echocardiogram of 07/27/2024. The heart rate ranged between 45-65 bpm during the study. The patient was in normal sinus rhythm during the exam. Left Ventricle: The left ventricle is normal in size and wall thickness. Left ventricular systolic function is normal. The ejection fraction is estimated to be 60-65%. There has been no significant change since the previous exam. There are no focal wall motion abnormalities. Grade I diastolic dysfunction with normal left atrial pressure. Right Ventricle: The right ventricle is normal in size and function. Atria: The left atrial size is normal. The left atrium has mildly decreased in size since the prior echo exam. Right atrial size is normal. There is no Doppler evidence for an interatrial shunt. The interatrial septum bows toward right atrium consistent with elevated left atrial pressure. Mitral Valve: The mitral valve leaflets appear to open well. There is no mitral valve stenosis. There is mild mitral regurgitation. Aortic Valve: The aortic valve is trileaflet. The aortic valve opens well. There is no aortic valve stenosis. There is trace aortic regurgitation. Tricuspid Valve: The tricuspid valve is normal. There is trace tricuspid regurgitation. Pulmonary artery pressures cannot be estimated because of the lack of a measurable TR jet velocity but the IVC suggests a CVP of around 3 mmHg. Pulmonic Valve: The pulmonic valve is not well seen, but is grossly normal. There is trace pulmonic regurgitation. Great Vessels: The aortic root is normal size. The ascending aorta is normal in size. The aortic arch could not be visualized. The IVC is of normal diameter and collapses greater than 50% with a sniff. This suggests a low right atrial pressure of 3 mm Hg. Pericardium/ Pleura There is no pericardial effusion. MMode/2D Measurements & Calculations LVIDd: 4.0 cm LVOT diam: 2.0 cm LVIDs: 2.8 cm Ao root diam: 3.1 cm FS: 30.7 % asc Aorta Diam: 3.1 cm IVSd: 0.83 cm LVPWd: 0.85 cm LV johnson. diameter/BSA (cm/m^2): 2.1 LV sys. diameter/BSA (cm/m^2): 1.4 LA A2 area: 18.0 cm2 IVC diam: 1.6 cm LA A4 area: 20.2 cm2 LA length (vol): 5.5 cm LA vol: 55.8 ml LA vol index: 28.9 ml/m2 RVD1 (basal): 2.7 cm RVD2 (mid): 1.9 cm TAPSE: 2.1 cm Doppler Measurements & Calculations Ao V2 max: 134.5 cm/sec LVOT Max Freddie: 121.9 cm/sec Ao V2 mean: 84.5 cm/sec LV V1 max P.9 mmHg Ao max P.2 mmHg LV V1 VTI: 24.8 cm Ao mean P.5 mmHg RICKY(I,D): 2.8 cm2 Ao V2 VTI: 27.5 cm RICKY(V,D): 2.9 cm2 sev ratio: 0.90 RICKY indexed to BSA (cm^2/m^2): 1.5 MV E max freddie: 59.5 cm/sec PA V2 max: 93.3 cm/sec MV A max freddie: 69.5 cm/sec PA V2 mean: 67.0 cm/sec MV E/A: 0.86 PA mean P.0 mmHg Med Peak E' Freddie: 7.7 cm/sec PA pr(Accel): 22.5 mmHg E/E' med: 7.8 Lat Peak E' Freddie: 9.6 cm/sec E/E' lat: 6.2 E/e' average: 7.0 MV dec time: 0.27 sec SV(LVOT): 78.1 ml Reading Physician:06:11 PM
== END ==
LOC: ECHO 16:18
PROVIDERS: PCP Family Medicine; Referring Provider Internal Medicine Cardiovascular Disease; Visit Provider Internal Medicine Cardiovascular Disease
DX: I34.0 Nonrheumatic mitral (valve) insufficiency (principal); I47.10 Supraventricular tachycardia, unspecified; R00.2 Palpitations; I49.3 Ventricular premature depolarization
CPT/HCPCS: 93306

== ENCOUNTER → 2024-11-30 08:18 | Outpatient (CLI) | payer MEDICARE, SELFPAY ==
[2024-11-30 09:11] LABS: Add Manual Diff / Slide Review NO; Hematocrit 40.2 % (36-46); Hemoglobin 13.4 g/dL (12.0-16.0); Lymphocytes Absolute Auto 1900 /uL (1100-4500); Mean Corpuscular HGB Conc 33.4 % (30-36); Mean Corpuscular Hemoglobin 28.5 PG (26-34); Mean Corpuscular Volume 85.3 fL (80-100); Platelet Count 257 X10^3/uL (150-400)
[2024-11-30 09:34] LABS: Alanine Aminotransferase 21 IU/L (<35); Albumin 4.4 g/dL (3.5-5.0); Albumin Globulin Ratio 1.8 (1.0-2.8); Alkaline Phosphatase 80 U/L (38-126); Blood Urea Nitrogen 16 mg/dL (7-17); Calcium 10.4 mg/dL (8.4-10.2); Carbon Dioxide 27 mmol/L (22-32); Chloride 103 mmol/L (98-107); Estimated Glomerular Filt Rate > 60 mL/min (>60); Globulin 2.4 g/dL (1.7-4.1); Glucose 108 mg/dL (70-99); HEMOLYSIS < 15 (0-50); Potassium 4.8 mmol/L (3.4-5.1); Sodium 137 mmol/L (137-145); Total Protein 6.8 g/dL (6.3-8.2)
[2024-11-30 14:00] LABS: Hemoglobin A1C% w Est Avg Glu 5.5 % (4.0-6.0)
== END ==
PROVIDERS: PCP Family Medicine; Referring Provider Family Medicine; Visit Provider Family Medicine
DX: Z41.9 Encounter for procedure for purposes other than remedying health state, unspecified (principal); E03.8 Other specified hypothyroidism; Z09 Encounter for follow-up examination after completed treatment for conditions other than malignant neoplasm
CPT/HCPCS: 36415; 80053; 83036; 85025

== ENCOUNTER 2024-12-07 13:54 | Emergency (ER) | payer MEDICARE, SELFPAY ==
[2024-12-07 14:12] VITALS: BP 131/76; PULSE 61; RESP 18; TEMP 36.9; O2SAT 100; BMI 27.8
--- NOTE | 2024-12-07 14:23 | ED.FALL ---
HPI - Fall <Claudia Diamond PA-C - Last Filed: 12/07/24 17:51> General Chief Complaint: Fall Stated Complaint: Fell 6ft, landed on back/nausea Time Seen by Provider: 12/07/24 14:23 Source: patient Mode of arrival: Ambulatory History of Present Illness HPI Narrative: Ms. Brown is a very pleasant 64-year-old female with a past medical history of hypothyroidism who presents to the emergency department after falling backwards off a refrigerator at home approximately 1 hour ago. Patient states she was trying to get into her attic, the lactic would not work, so she climbed on top of her refrigerator to pull the attic door down but fell backwards off the refrigerator landing on a small pad on the floor. She fell backwards hitting the left elbow 1st followed by the left hip and then the back of her head. There was no loss of consciousness, she does not take blood thinners. She is now experiencing the most significant pain of her left elbow, she does have history of prior left shoulder surgery and does have some pain radiating up to the shoulder and down the forearm as well. She reports mild pain in the back of her head and generalized neck soreness. Her posterior left hip/SI region is also hurting her but she is ambulatory and able to move it. Reports that she does have some mild chest pain as well because she would the wind knocked out of her. No wounds. No bleeding. No abdominal pain. No vomiting or diarrhea. She is having some nausea. 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 Related Data Home Medications ?Medication ?Instructions ?Recorded ?Confirmed acetaminophen 500 mg tablet 1,000 mg PO QID 11/26/22 12/04/24 ibuprofen 200 mg tablet 400 mg PO QPM 11/26/22 12/04/24 Compound Tbyroid PO 05/24/24 12/04/24 cyclobenzaprine 5 mg tablet 5 mg PO BEDTIME 05/24/24 12/04/24 valacyclovir 500 mg tablet 500 mg PO DAILY 05/24/24 12/04/24 Previous Rx's ?Medication ?Instructions ?Recorded naproxen 500 mg tablet 500 mg PO BID PRN pain #20 tabs 12/07/24 ondansetron 4 mg disintegrating 4 mg PO Q8H PRN nausea and 12/07/24 tablet vomiting #20 tabs Allergies Allergy/AdvReac Type Severity Reaction Status Date / Time hydrocodone AdvReac Severe Headache, Verified 12/07/24 14:18 vomiting oxycodone AdvReac Severe Headache, Verified 12/07/24 14:18 vomiting Review of Systems <Claudia Diamond PA-C - Last Filed: 12/07/24 17:51> Review of Systems ROS Unobtainable: All systems reviewed & are unremarkable except as noted in HPI and below Patient History <Claudia Diamond PA-C - Last Filed: 12/07/24 17:51> Medical History History of COVID-19 Anesthesia complication Osteoarthritis Manasa's disease Hypothyroid Surgical History Hx of foot surgery History of arthroscopy of left shoulder History of arthroscopy of right shoulder Social History household members: none Smoking Status: Never smoker alcohol intake: current Smoking Status: Never smoker alcohol intake frequency: a few times a week Exam <Claudia Diamond PA-C - Last Filed: 12/07/24 17:51> Narrative Exam Narrative: GENERAL: 64 year old patient appears stated age. Well-developed patient, in no acute distress. HEAD: Atraumatic. Normocephalic. No scalp wounds. EYES: PERRL. Extraocular motions intact. No scleral icterus. No injection or drainage. ENT: Clear ear canals and pearly reeves TMs bilaterally with no hemotympanum or ly sign. Nose without bleeding, purulent drainage. Throat without erythema, tonsillar hypertrophy or exudate. Airway patent. NECK: Trachea midline. Cervical ROM intact. No midline cervical tenderness. CARDIOVASCULAR: Regular rate and rhythm. RESPIRATORY: ?Nonlabored respirations. ?Speaking in clear, full sentences. ?Clear to auscultation. Breath sounds equal bilaterally. No wheezes, rales, or rhonchi. ? GASTROINTESTINAL: Abdomen soft, non-tender, nondistended. No ecchymosis. EXTREMITIES: Patient holding left arm abducted with elbow flexed in position of comfort. No focal bony tenderness of the shoulder, elbow, humerus, forearm or wrist. She does have pain with flexion-extension of the left elbow and with pronation supination in the left elbow. No tenderness to palpation of right upper extremity or lower extremities. BACK: No abrasions or bruising. No midline spinal tenderness. There is subjective pain in the left SI joint/hip region. NEURO: AOx3. ?Clear speech. ?Sensation intact to light touch on upper and lower extremities. SKIN: No rash or erythema of visible areas Initial Vital Signs Initial Vital Signs: Vital Signs Temperature 98.4 F 12/07/24 14:12 Pulse Rate 61 12/07/24 14:12 Respiratory Rate 18 12/07/24 14:12 Blood Pressure 131/76 12/07/24 14:12 Pulse Oximetry 100 12/07/24 14:12 Oxygen Delivery Method Room Air 12/07/24 14:12 <Ashley Padron MD - Last Filed: 12/08/24 00:17> Initial Vital Signs Initial Vital Signs: Vital Signs Temperature 98.4 F 12/07/24 14:12 Pulse Rate 61 12/07/24 14:12 Respiratory Rate 18 12/07/24 14:12 Blood Pressure 131/76 12/07/24 14:12 Pulse Oximetry 100 12/07/24 14:12 Oxygen Delivery Method Room Air 12/07/24 14:12 Procedures <Claudia Diamond PA-C - Last Filed: 12/07/24 17:51> Orthopedic Splinting/Casting Injury #1: Side: left Upper Extremity Injury Location: elbow Upper Extremity Immobilizer: sling/shoulder immobilizer and posterior splint Post splinting neuro exam: intact and no change Post splinting vascular exam: intact Placed by: Nursing (and myself) Course <Claudia Diamond PA-C - Last Filed: 12/07/24 17:51> Orders Ordered: ED Orders 12/07/24 16:15 Consult to [facility] Stat Discontinued Medications Acetaminophen (Acetaminophen 325 Mg Tablet) 975 mg PO NOW ONE Stop: 12/07/24 14:33 Last Admin: 12/07/24 15:04 Dose: Not Given Documented By: PRAVIN Naproxen (Naproxen 250 Mg Tablet) 500 mg PO NOW ONE Stop: 12/07/24 16:40 Last Admin: 12/07/24 16:50 Dose: 500 mg Documented By: PRAVIN Ondansetron HCl (Ondansetron 4 Mg Odt) 4 mg SL NOW ONE Stop: 12/07/24 14:33 Last Admin: 12/07/24 15:03 Dose: 4 mg Documented By: PRAVIN Vital Signs Vital signs: Vital Signs - 8 hr 12/07/24 14:12 Temperature 98.4 F Pulse Rate 61 Respiratory Rate 18 Blood Pressure 131/76 Pulse Oximetry 100 Oxygen Delivery Method Room Air <Ashley Padron MD - Last Filed: 12/08/24 00:17> Orders Ordered: ED Orders 12/07/24 16:15 Consult to [facility] Stat Discontinued Medications Acetaminophen (Acetaminophen 325 Mg Tablet) 975 mg PO NOW ONE Stop: 12/07/24 14:33 Last Admin: 12/07/24 15:04 Dose: Not Given Documented By: PRAVIN Naproxen (Naproxen 250 Mg Tablet) 500 mg PO NOW ONE Stop: 12/07/24 16:40 Last Admin: 12/07/24 16:50 Dose: 500 mg Documented By: PRAVIN Ondansetron HCl (Ondansetron 4 Mg Odt) 4 mg SL NOW ONE Stop: 12/07/24 14:33 Last Admin: 12/07/24 15:03 Dose: 4 mg Documented By: PRAVIN Vital Signs Vital signs: Vital Signs - 8 hr 12/07/24 14:12 Temperature 98.4 F Pulse Rate 61 Respiratory Rate 18 Blood Pressure 131/76 Pulse Oximetry 100 Oxygen Delivery Method Room Air MDM - Fall <Claudia Diamond PA-C - Last Filed: 12/07/24 17:51> Medical Records Attestation: I reviewed the patient's medical records. Imaging Data CT scan - head: Radiologist's Impression: PROCEDURE: CT HEAD/BRAIN WO CON INDICATIONS: fall backwards off refrigerator; no thinners TECHNIQUE: Noncontrast 4.5 mm thick angled axial sections acquired from the foramen magnum to the vertex, with coronal and sagittal reformats. For radiation dose reduction, the following was used: automated exposure control, adjustment of mA and/or kV according to patient size. COMPARISON: None. FINDINGS: Image quality: Diagnostic. CSF spaces: Basal cisterns are patent. No extra-axial fluid collections. The ventricles are symmetric in size and shape. Persistent cavum septum pellucidum. Brain: No acute intracranial hemorrhage or mass effect. There is cerebral volume loss, with resultant ventricular and sulcal prominence. There are periventricular and deep white matter chronic small vessel ischemic changes. There is intracranial internal carotid artery atherosclerosis. Skull and face: Calvarium and visualized facial bones appear intact, without suspicious lesions. Sinuses: Visualized sinuses and mastoids are clear. IMPRESSION: No acute intracranial pathology. Approved by: Demetri Onofre M.D. on 12/07/2024 at 15:09 CT - cervical spine: Radiologist's Impression: PROCEDURE: CT CERVICAL SPINE WO CON INDICATIONS: fall backwards off refrigerator; no thinners TECHNIQUE: Noncontrast 3 mm thick sections acquired from the skull base to the T4 level. Sagittal and coronal reformats were then constructed. For radiation dose reduction, the following was used: automated exposure control, adjustment of mA and/or kV according to patient size. COMPARISON: None. FINDINGS: Image quality: Excellent. Bones: No acute fractures or dislocations. Straightening of the normal cervical lordosis. Visualized superior ribs are intact. Multilevel disc space narrowing and degenerative endplate changes. Multilevel uncovertebral joint and facet hypertrophy. Soft tissues: Prevertebral soft tissues are normal in thickness. No paravertebral hematomas. No apical pneumothoraces. IMPRESSION: No acute displaced fracture or traumatic subluxation. Approved by: Demetri Onofre M.D. on 12/07/2024 at 15:12 Left Elbow X-Ray: Radiologist's Impression: PROCEDURE: XR ELBOW LT MIN 3V INDICATIONS: fall backwards off refrigerator; L shoulder elbow pain TECHNIQUE: 3 views of the elbow were acquired. COMPARISON: None. FINDINGS: Bones: Acute minimally impacted fracture of the radial head. Acute nondisplaced avulsion fracture of the coronoid process of the ulna. No suspicious bony lesions. Soft tissues: Moderate elbow joint effusion. No suspicious soft tissue calcifications. IMPRESSION: Acute minimally impacted radial head fracture and nondisplaced avulsion fracture of the coronoid process of the ulna. Dictated by: Ion Jim M.D. on 12/07/2024 at 15:20 Approved by: Ion Jim M.D. on 12/07/2024 at 15:21 Left Shoulder XR: Radiologist's Impression: PROCEDURE: XR SHOULDER LT MIN 2V INDICATIONS: fall backwards off refrigerator; L shoulder elbow pain TECHNIQUE: 3 views of the shoulder were acquired. COMPARISON: [facility], CR, XR SHOULDER LT MIN 2V, 04/15/2022, 14:37. FINDINGS: Bones: Changes of left Cristian a total shoulder arthroplasty. No hardware loosening or failure. No fracture or dislocation. Soft tissues: No suspicious soft tissue calcifications. IMPRESSION: No acute osseous abnormality. Changes of left anatomic total shoulder arthroplasty. Dictated by: Ion Jim M.D. on 12/07/2024 at 15:22 Approved by: Ion Jim M.D. on 12/07/2024 at 15:22 Chest x-ray: Radiologist's Impression: PROCEDURE: XR CHEST 2V INDICATIONS: fall backwards off refrigerator; no thinners TECHNIQUE: 2 views of the chest were acquired. COMPARISON: None. FINDINGS: Surgical changes and devices: None. Lungs and pleura: Lungs are clear. No pleural effusions or pneumothorax. Mediastinum: Mediastinal contours are normal. Heart size is normal. Bones and chest wall: No suspicious bony abnormalities. Soft tissues appear unremarkable. Changes of left anatomic total shoulder arthroplasty. IMPRESSION: No acute cardiopulmonary abnormality is seen. Dictated by: Ion Jim M.D. on 12/07/2024 at 15:20 Approved by: Ion Jim M.D. on 12/07/2024 at 15:20 MDM Narrative Medical decision making narrative: 64-year-old female with a past medical history of hypothyroidism who presents to the emergency department after falling backwards off a refrigerator at home approximately 1 hour ago. Differential diagnosis includes but is not limited to closed head injury, concussion, ICH, left elbow fracture, pneumothorax, hip fracture, sprain, strain, contusion, etc. On exam patient is in no acute distress, nontoxic-appearing, all vital signs within normal limits. She is ambulatory. She has pain with range of motion of the left elbow, subjective left hip pain, mild headache/lightheadedness/nausea after posterior head trauma. No tenderness to palpation of the lower extremities, abdomen, chest, back, no bruising. We will obtain CT head, cervical spine, x-ray chest, shoulder, elbow, hip. We will treat with Tylenol and Zofran. Left elbow x-ray reveals acute minimally impacted radial head fracture and nondisplaced avulsion fracture of the coronoid process of the ulna. Remainder of imaging including CT head, CT cervical spine, chest x-ray, hip/pelvic x-ray, left shoulder x-ray reveal no acute abnormalities. Case discussed with attending Dr. Padron, consult placed to [facility]. Patient was placed into a left arm posterior long-arm splint with sling by myself and nursing staff, she was neurovascularly intact both before and after the application of the splint. Discussed supportive care including naproxen, Tylenol, rice therapy, Zofran if needed for nausea, follow up with Orthopedics, she was provided with concussion information packet. Discussed strict ER return precautions. Patient verbalized understanding of all information is agreeable with the plan. She is ambulatory and eagerly requesting discharge home. She is stable for discharge at this time. Discharge Plan Departure Patient Disposition: Home Clinical Impression: Closed fracture of left elbow Qualifiers: Encounter type: initial encounter Qualified Code(s): S42.402A - Unspecified fracture of lower end of left humerus, initial encounter for closed fracture Fall Qualifiers: Encounter type: initial encounter Qualified Code(s): W19.XXXA - Unspecified fall, initial encounter Closed head injury Qualifiers: Encounter type: initial encounter Qualified Code(s): S09.90XA - Unspecified injury of head, initial encounter Instructions: DI for Elbow Fracture Activity Restrictions/Additional Instructions: Dear Ms. Brown, Thank you for coming to the emergency department. Today you were evaluated for injuries sustained after a fall. We will obtain x-ray of your shoulder, hip and pelvis, left elbow, CT of your head, CT of your cervical spine. Your imaging revealed 2 broken bones in the left elbow. You have been placed into a temporary splint and sling. Please follow up with [facility] for further management of your left elbow fracture. Please use RICE therapy for your pain in addition to naproxen/acetaminophen. Rest the painful area. Ice the area of pain/swelling for at least 15 minutes, 4x a day. Compress the area of swelling using a brace, wrap, or splint if applied. Elevate the painful or swollen extremity by supporting it above the level of the heart with pillows when sitting or laying. You likely have a concussion and may have a mild headache and some nausea for a few days. Avoiding highly stimulating activities and even TV or computers may be helpful in minimizing your symptoms. Avoid activities that will put you at risk for another head injury for at least a week. You can take tylenol or naproxen for headache or the prescription provided for nausea/vomiting. Return for worsening or persistent symptoms Please follow up with your primary care doctor within the next 2-3 days for ER follow-up. (If you do not have a PCP you can call [phone]. ?to schedule an appointment with an [facility] Primary Care Provider) IF YOU DEVELOP ANY NEW OR WORSENING SYMPTOMS, RETURN TO THE ER! Please read the attached instructions, they highlight more specific treatments and interventions for you at home. Thank you for letting me participate in your care, Claudia Diamond PA-C Prescriptions: New naproxen 500 mg tablet 500 mg PO BID PRN (Reason: pain) Qty: 20 0RF ondansetron 4 mg tablet,disintegrating 4 mg PO Q8H PRN (Reason: nausea and vomiting) Qty: 20 0RF No Action cyclobenzaprine 5 mg tablet 5 mg PO BEDTIME Compound Tbyroid 85 mg capsule PO valacyclovir 500 mg tablet 500 mg PO DAILY acetaminophen 500 mg Tablet 1,000 mg PO QID ibuprofen 200 mg Tablet 400 mg PO QPM Referrals: Samantha Hernandez MD [Primary Care Provider, Family Practice] Migel Willams MD [Physician, Orthopedic Surgery] Referral Note: Left elbow fracture Stand Alone Forms: Patient Portal/API ED Sign-out <Ashley Padron MD - Last Filed: 12/08/24 00:17> Cosign ED Attending Eh Attestation: I was immediately available in the department for consultation throughout this patient's visit. Ashley Padron MD
--- NOTE | 2024-12-07 14:32 | DI.RAD.S_ITS ---
PROCEDURE: XR CHEST 2V INDICATIONS: fall backwards off refrigerator; no thinners TECHNIQUE: 2 views of the chest were acquired. COMPARISON: None. FINDINGS: Surgical changes and devices: None. Lungs and pleura: Lungs are clear. No pleural effusions or pneumothorax. Mediastinum: Mediastinal contours are normal. Heart size is normal. Bones and chest wall: No suspicious bony abnormalities. Soft tissues appear unremarkable. Changes of left anatomic total shoulder arthroplasty. IMPRESSION: No acute cardiopulmonary abnormality is seen. Dictated by: Ion Jim M.D. on 12/07/2024 at 15:20 Approved by: Ion Jim M.D. on 12/07/2024 at 15:20
--- NOTE | 2024-12-07 14:32 | DI.CT.S_ITS ---
PROCEDURE: CT CERVICAL SPINE WO CON INDICATIONS: fall backwards off refrigerator; no thinners TECHNIQUE: Noncontrast 3 mm thick sections acquired from the skull base to the T4 level. Sagittal and coronal reformats were then constructed. For radiation dose reduction, the following was used: automated exposure control, adjustment of mA and/or kV according to patient size. COMPARISON: None. FINDINGS: Image quality: Excellent. Bones: No acute fractures or dislocations. Straightening of the normal cervical lordosis. Visualized superior ribs are intact. Multilevel disc space narrowing and degenerative endplate changes. Multilevel uncovertebral joint and facet hypertrophy. Soft tissues: Prevertebral soft tissues are normal in thickness. No paravertebral hematomas. No apical pneumothoraces. IMPRESSION: No acute displaced fracture or traumatic subluxation. Approved by: Demetri Onofre M.D. on 12/07/2024 at 15:12
--- NOTE | 2024-12-07 14:32 | DI.RAD.S_ITS ---
PROCEDURE: XR ELBOW LT MIN 3V INDICATIONS: fall backwards off refrigerator; L shoulder elbow pain TECHNIQUE: 3 views of the elbow were acquired. COMPARISON: None. FINDINGS: Bones: Acute minimally impacted fracture of the radial head. Acute nondisplaced avulsion fracture of the coronoid process of the ulna. No suspicious bony lesions. Soft tissues: Moderate elbow joint effusion. No suspicious soft tissue calcifications. IMPRESSION: Acute minimally impacted radial head fracture and nondisplaced avulsion fracture of the coronoid process of the ulna. Dictated by: Ion Jim M.D. on 12/07/2024 at 15:20 Approved by: Ion Jim M.D. on 12/07/2024 at 15:21
--- NOTE | 2024-12-07 14:32 | DI.CT.S_ITS ---
PROCEDURE: CT HEAD/BRAIN WO CON INDICATIONS: fall backwards off refrigerator; no thinners TECHNIQUE: Noncontrast 4.5 mm thick angled axial sections acquired from the foramen magnum to the vertex, with coronal and sagittal reformats. For radiation dose reduction, the following was used: automated exposure control, adjustment of mA and/or kV according to patient size. COMPARISON: None. FINDINGS: Image quality: Diagnostic. CSF spaces: Basal cisterns are patent. No extra-axial fluid collections. The ventricles are symmetric in size and shape. Persistent cavum septum pellucidum. Brain: No acute intracranial hemorrhage or mass effect. There is cerebral volume loss, with resultant ventricular and sulcal prominence. There are periventricular and deep white matter chronic small vessel ischemic changes. There is intracranial internal carotid artery atherosclerosis. Skull and face: Calvarium and visualized facial bones appear intact, without suspicious lesions. Sinuses: Visualized sinuses and mastoids are clear. IMPRESSION: No acute intracranial pathology. Approved by: Demetri Onofre M.D. on 12/07/2024 at 15:09
--- NOTE | 2024-12-07 14:32 | DI.RAD.S_ITS ---
PROCEDURE: XR HIP W PEL IF DONE LT 2V INDICATIONS: fall backwards off refrigerator; L hip pain TECHNIQUE: AP pelvis and left lateral views of the hip were acquired. COMPARISON: None. FINDINGS: Bones: No fractures or dislocations. No suspicious bony lesions. The visualized pelvic ring appears intact. Moderate degenerate arthrosis of both hips. Soft tissues: No suspicious soft tissue calcifications or masses. IMPRESSION: No acute bony abnormality. Dictated by: Ion Jim M.D. on 12/07/2024 at 15:21 Approved by: Ion Jim M.D. on 12/07/2024 at 15:21
--- NOTE | 2024-12-07 14:32 | DI.RAD.S_ITS ---
PROCEDURE: XR SHOULDER LT MIN 2V INDICATIONS: fall backwards off refrigerator; L shoulder elbow pain TECHNIQUE: 3 views of the shoulder were acquired. COMPARISON: [facility], CR, XR SHOULDER LT MIN 2V, 04/15/2022, 14:37. FINDINGS: Bones: Changes of left Cristian a total shoulder arthroplasty. No hardware loosening or failure. No fracture or dislocation. Soft tissues: No suspicious soft tissue calcifications. IMPRESSION: No acute osseous abnormality. Changes of left anatomic total shoulder arthroplasty. Dictated by: Ion Jim M.D. on 12/07/2024 at 15:22 Approved by: Ion Jim M.D. on 12/07/2024 at 15:22
--- NOTE | 2024-12-07 14:37 | PC.NURSE ---
While this RN and provider Lobo in patient room, this RN asks Provider Lobo would like patient to be in C-collar and provider Olbo states no.
[2024-12-07] MEDS: ONDANSETRON 4 MG ODT SL (15:03)
[2024-12-07] MEDS: NAPROXEN 250 MG TABLET 500 MG PO (16:50)
== END 2024-12-07 16:54 | disposition home or self-care (01) ==
PROVIDERS: Emergency Provider Physician Assistant; PCP Family Medicine
DX: S42.402A Unspecified fracture of lower end of left humerus, initial encounter for closed fracture (principal); S09.90XA Unspecified injury of head, initial encounter; M54.2 Cervicalgia; W17.89XA Other fall from one level to another, initial encounter
CPT/HCPCS: 29105; 70450; 71046; 72125; 73030; 73080; 73502; 99283; 99284

== ENCOUNTER → 2025-01-14 16:17 | Outpatient (CLI) | payer MEDICARE, SELFPAY ==
[2025-01-14 16:40] LABS: Hematocrit 42.0 % (36-46); Hemoglobin 14.0 g/dL (12.0-16.0); Mean Corpuscular HGB Conc 33.3 % (30-36); Mean Corpuscular Hemoglobin 28.3 PG (26-34); Mean Corpuscular Volume 85.0 fL (80-100); Platelet Count 220 X10^3/uL (150-400)
[2025-01-14 17:21] LABS: Alanine Aminotransferase 70 IU/L (<35); Albumin 4.7 g/dL (3.5-5.0); Albumin Globulin Ratio 1.7 (1.0-2.8); Alkaline Phosphatase 125 U/L (38-126); Blood Urea Nitrogen 18 mg/dL (7-17); Calcium 10.5 mg/dL (8.4-10.2); Carbon Dioxide 23 mmol/L (22-32); Chloride 104 mmol/L (98-107); Estimated Glomerular Filt Rate > 60 mL/min (>60); Globulin 2.8 g/dL (1.7-4.1); Glucose 99 mg/dL (70-99); HEMOLYSIS 39 (0-50); Potassium 4.7 mmol/L (3.4-5.1); Sodium 138 mmol/L (137-145); Total Protein 7.5 g/dL (6.3-8.2)
== END ==
PROVIDERS: PCP Family Medicine; Referring Provider Family Medicine; Visit Provider Family Medicine
DX: Z01.818 Encounter for other preprocedural examination (principal)
CPT/HCPCS: 36415; 80053; 85027

== ENCOUNTER → 2025-01-15 15:07 | Outpatient (CLI) | payer MEDICARE, SELFPAY ==
--- NOTE | 2025-01-15 15:09 | DI.US.S_ITS ---
PROCEDURE: US THYROID INDICATIONS: THYROID NODULE TECHNIQUE: Real-time scanning was performed of the thyroid gland, with image documentation. COMPARISON: [facility], US, US THYROID, 07/04/2024, 13:54. FINDINGS: Thyroid: Right lobe measures 4.4 x 1.3 x 1.2 cm. Left lobe measures 4.3 x 1 x 1 cm. Isthmus is 0.3 cm thick. Echotexture is heterogeneous yet without nodules seen measuring greater than 1 cm. IMPRESSION: No thyroid nodules are seen that measure greater than 1 cm. Heterogeneous thyroid, with normal size. ACR TI-RADS definitions and recommendations: TI-RADS 1 (benign): 0 points. FNA not needed. TI-RADS 2 (not suspicious): 2 points. FNA not needed. TI-RADS 3: 3 points. * FNA if 2.5 cm or larger, follow up if 1.5 cm or larger (at 1, 3, and 5 years). TI-RADS 4: 4-6 points. * FNA if 1.5 cm or larger, follow up if 1 cm or larger (at 1, 2, 3, and 5 years). TI-RADS 5: 7 points or more. * FNA if 1 cm or larger, follow up if 0.5 cm or larger (every year for 5 years). Dictated by: Sanya Hernández M.D. on 01/15/2025 at 15:08 Approved by: Sanya Hernández M.D. on 01/15/2025 at 15:09
--- NOTE | 2025-01-15 15:09 | DI.CT.S_ITS ---
PROCEDURE: CT SINUS SCREEN WO CON INDICATIONS: CHRONIC SINUSITIS TECHNIQUE: Noncontrast 3.0 mm axial images acquired from the frontal sinuses to the mid- sella, with coronal and sagittal reformats. For radiation dose reduction, the following was used: automated exposure control, adjustment of mA and/or kV according to patient size. COMPARISON: [facility], CT, CT SINUS WITHOUT CONTRAST, 12/19/2024, 15:42. [facility], CT, CT HEAD/BRAIN WO CON, 12/07/2024, 14:58. FINDINGS: Image quality: Excellent. Maxillary Sinuses: No bony remodeling or destruction. There is mild mucosal thickening seen within the inferior aspects of the maxillary sinuses. Ethmoid Air Cells: No bony remodeling or destruction. Sinuses are clear. Sphenoid Sinuses: No bony remodeling or destruction. Sinuses are clear. Frontal Sinuses: No bony remodeling or destruction. Sinuses are clear. The left frontal sinus is poorly developed. Ostiomeatal Complexes: Ostiomeatal complexes are patent, yet they are mildly constitutionally narrowed. No Evan cells. Miscellaneous: Visualized intra-orbital contents are normal. No ana luisa bullosa or paradoxical turbinate curvature. There is moderate rightward nasal septal deviation. IMPRESSION: Mild focal mucosal thickening can be seen involving the inferior maxillary sinuses, which is new compared to the prior recent examination. There is moderate rightward nasal septal deviation. Dictated by: Sanya Hernández M.D. on 01/15/2025 at 14:55 Approved by: Sanya Hernández M.D. on 01/15/2025 at 14:57
== END ==
LOC: CT 15:08
PROVIDERS: PCP Family Medicine; Referring Provider Family Medicine; Visit Provider Otolaryngology
DX: R51.9 Headache, unspecified (principal); J32.9 Chronic sinusitis, unspecified; E85.2 Heredofamilial amyloidosis, unspecified
CPT/HCPCS: 70486; 76536

== ENCOUNTER → 2025-02-20 14:14 | Outpatient (CLI) | payer MEDICARE, SELFPAY ==
[2025-02-20 16:23] LABS: Free T3, Triiodothyronine Free 2.71 pg/mL (2.77-5.27); Free T4, Direct Thyroxine 0.80 ng/dL (0.78-2.19)
[2025-02-20 16:26] LABS: Alanine Aminotransferase 23 IU/L (<35); Albumin 4.5 g/dL (3.5-5.0); Albumin Globulin Ratio 1.9 (1.0-2.8); Alkaline Phosphatase 73 U/L (38-126); Blood Urea Nitrogen 18 mg/dL (7-17); Calcium 10.4 mg/dL (8.4-10.2); Carbon Dioxide 26 mmol/L (22-32); Chloride 105 mmol/L (98-107); Estimated Glomerular Filt Rate > 60 mL/min (>60); Globulin 2.4 g/dL (1.7-4.1); Glucose 108 mg/dL (70-99); HEMOLYSIS < 15 (0-50); Magnesium 1.8 mg/dL (1.6-2.3); Phosphorous 3.5 mg/dL (2.8-4.1); Potassium 4.7 mmol/L (3.4-5.1); Sodium 139 mmol/L (137-145); Total Protein 6.9 g/dL (6.3-8.2)
[2025-02-20 16:36] LABS: Thyroid Stimulating Hormone 2.29 uIU/mL (0.47-4.68)
== END ==
PROVIDERS: PCP Family Medicine; Referring Provider Student in an Organized Health Care Education/Training Program; Visit Provider Student in an Organized Health Care Education/Training Program
DX: I10 Essential (primary) hypertension (principal); E83.52 Hypercalcemia; E03.9 Hypothyroidism, unspecified
CPT/HCPCS: 36415; 80053; 82652; 83735; 83970; 84100; 84439; 84443; 84481